=== PATIENT | male | born 1965 | race Caucasian/White ===

== ENCOUNTER 2023-01-03 18:50 | Inpatient (IN) ==
[2023-01-04 01:05] LABS: Urine Appearance Clear; Urine Bilirubin Negative (Negative); Urine Blood Negative (Negative); Urine Color Yellow; Urine Glucose 3+(>=500 mg/dL) (Negative); Urine Ketones 1+ (Negative); Urine Nitrite Negative (Negative); Urine Protein 2+(100 mg/dL) (Negative); Urine Specific Gravity 1.036 (1.002-1.030); Urine Urobilinogen Negative (Negative)
[2023-01-04 01:20] LABS: Urine Bacteria Absent (Absent); Urine Red Blood Cell Trace(0-2/hpf) (Absent); Urine Squamous Epithelial Cell Present (Absent); Urine White Blood Cell Trace(0-5/hpf) (Absent)
[2023-01-04 01:25] LABS: Urine Benzodiazepine Screen None Detected (None Detect); Urine Cannabinoids Screen None Detected (None Detect); Urine Opiates Screen None Detected (None Detect)
[2023-01-04] MEDS ORDERED: Al Hydrox/Mg Hydrox/Simet LIQ 30 ML UDC PO PRN (05:30)
[2023-01-04] MEDS: Vitamin THERAPEUTIC TAB PO SCH (08:20)
[2023-01-04 12:39] LABS: Hematocrit 53.3 % (38-53); Hemoglobin 18.1 g/dL (13.2-16.3); Mean Corpuscular Hemoglobin 30.6 pg (27-33); Mean Platelet Volume 8.4 fL (7.5-11.2); Platelet Count 283 10^3/uL (150-450); Red Blood Count 5.92 10^6/uL (4.06-5.63); Red Cell Distribution Width 13.6 % (12-17); White Blood Count 7.7 10^3/uL (3.6-10.2)
[2023-01-04 12:55] LABS: HDL Cholesterol 45.3 mg/dL
[2023-01-04 12:55] LABS: Calcium 9.8 mg/dL (8.6-10.3); Creatinine, Serum 1.34 mg/dL (0.67-1.17); Potassium 4.3 mmol/L (3.5-5.0)
[2023-01-04] MEDS ORDERED: Dextrose 50% Syringe 50 ml 25 GM/50 ML SYRINGE IV PUSH PRN (13:19)
[2023-01-04 13:39] LABS: Albumin 4.7 g/dL (3.2-5.2); Albumin/Globulin Ratio 1.3 (1-3); Globulin 3.5 g/dL (2-4); Total Bilirubin 1.9 mg/dL (0.2-1.0); Total Protein 8.2 g/dL (6.4-8.9)
[2023-01-04] MEDS ORDERED: Lactated Ringers 1000 ml BAG 1,000 ML IV SCH (15:00)
[2023-01-04] MEDS ORDERED: Insulin GLARGINE 100 un/ml 10 ml VIAL SUBCUT SCH (21:00)
[2023-01-04 21:26] LABS: Glucose Confirmatory 428 mg/dL (70-100)
[2023-01-05] MEDS: Vitamin THERAPEUTIC TAB PO SCH (08:31)
[2023-01-05 08:56] VITALS: BP 160/91
[2023-01-05 11:47] LABS: ABS Basophils 0.1 10^3/uL (0.0-0.1); ABS Eosinophils 0.1 10^3/uL (0.0-0.5); ABS Lymphocytes 1.2 10^3/uL (1.0-4.8); ABS Monocytes 0.4 10^3/uL (0.0-1.1); ABS Neutrophils 5.8 10^3/uL (1.5-7.6); ABS Nucleated RBC 0.02 10^3/ul; Eosinophil % 1.8 %; Hematocrit 49.8 % (38-53); Lymphocyte % 15.3 %; Mean Corpuscular Hemoglobin 30.8 pg (27-33); Mean Corpuscular Hgb Conc 34.2 g/dL (31-36); Mean Corpuscular Volume 90.1 fL (80-97); Mean Platelet Volume 8.8 fL (7.5-11.2); Nucleated Red Blood Cells % 0.3 /100 WBC (0.0-0.4); Platelet Count 278 10^3/uL (150-450); Red Blood Count 5.53 10^6/uL (4.06-5.63); Red Cell Distribution Width 13.9 % (12-17); White Blood Count 7.7 10^3/uL (3.6-10.2)
[2023-01-05 12:03] LABS: Calcium 9.7 mg/dL (8.6-10.3); Creatinine, Serum 1.46 mg/dL (0.67-1.17); Potassium 4.8 mmol/L (3.5-5.0); eGFR CKD-EPI 55.1 (>60)
== END 2023-01-05 16:35 | disposition home or self-care (01) | DRG 754 ==
LOC: ED 18:50 → EDHOLD 01-04 05:10 → BSU 01-04 05:49
PROVIDERS: ADMIT Psychiatry & Neurology Psychiatry; ATTEND Psychiatry & Neurology Psychiatry